=== PATIENT | female | born 1985 | race Hispanic/Latino ===

== ENCOUNTER 2018-07-31 19:45 | Emergency (ER) | payer MEDICAID ==
--- NOTE | 2018-07-31 20:43 | Emergency Department Report ---
Blank Doc - Documentation Documentation: Pt with a hx of migraines states she has had a left sided HOLM since 07/27 pt states she is currently taking fiorcet [place] ibuprofen no emesis felt nausea early no vision changes no numbness or weakness no fever LNMP July 01, had a tubal ligation non smoker occ drinker uses a CBD pen
[2018-07-31 20:44] VITALS: BP 130/82
[2018-07-31] MEDS ORDERED: REGLAN IV ONE (21:13)
[2018-07-31] MEDS ORDERED: TORADOL IV ONE (21:13)
[2018-07-31] MEDS ORDERED: BENADRYL IV ONE (21:14)
--- NOTE | 2018-07-31 21:58 | Emergency Department Report ---
ED Headache HPI - General Chief Complaint: Headache Stated Complaint: MIGRAINE Time Seen by Provider: 07/31/18 20:39 Source: patient Exam Limitations: no limitations - History of Present Illness Initial Comments: Patient is a 33-year-old white female with a history of chronic migraine headaches and usually takes Fioricet at home presents to the ED with acute exacerbation of her chronic migraine headaches diffusely with nausea for the last 4 days. Patient states that she has been taking Fioricet at home with no relief. Patient denies dizziness, change in vision, neck pain, chest pain, shortness of breath, palpitations, vomiting, abdominal pain, diarrhea, fever, chills, nasal and sinus congestion or sore throat. Timing/Duration: constant, waxing and waning, other (4 days) Quality: severe, constant, sharp, throbbing Head Injury Location: global Recent Head Trauma: no recent headache/trauma, chronic headaches Modifying Factors: improves with: medication Associated Symptoms: denies symptoms. denies: confusion, fatigue, facial pain, fever/chills, flushing, loss of consciousness, nausea/vomiting, nasal congestion, nasal drainage, numbness in legs/feet, rash, seizures, sinus infection, stiff neck, weakness Allergies/Adverse Reactions: Allergies No Known Allergies Allergy (Unverified 07/31/18 20:04) Home Medications: Ambulatory Orders Butalb/Acetamin/Caff 50-325-40 [Fioricet 50-325-40] 1 - 2 tab PO Q4H PRN #15 tablet 07/31/18 Ketorolac [Toradol] 10 mg PO Q8H PRN #20 tablet 07/31/18 Promethazine [Phenergan] 25 mg PO Q6HR PRN #24 tab 07/31/18 ED Review of Systems ROS: Stated complaint: MIGRAINE Other details as noted in HPI Comment: All other systems reviewed and negative Constitutional: no symptoms reported, see HPI. denies: chills, diaphoresis, fever Eyes: as per HPI. denies: eye pain, eye discharge, vision change ENT: as per HPI. denies: ear pain, throat pain, dental pain, hearing loss, congestion Respiratory: no symptoms reported, see HPI. denies: cough, shortness of breath, SOB with exertion, SOB at rest, wheezing Cardiovascular: as per HPI. denies: chest pain, palpitations, syncope, paroxysmal nocturnal dyspnea Endocrine: no symptoms reported, see HPI. denies: excessive sweating, flushing, increased thirst, increased urine, unexplained weight gain Gastrointestinal: as per HPI, nausea. denies: abdominal pain, vomiting, diarrhea, hematemesis, hematochezia Genitourinary: as per HPI. denies: urgency, dysuria, frequency, discharge Musculoskeletal: as per HPI, myalgia. denies: back pain, joint swelling, arthralgia Skin: as per HPI. denies: rash, lesions, change in color, change in hair/nails Neurological: as per HPI, headache. denies: weakness, numbness, paresthesias, confusion, abnormal gait, vertigo Psychiatric: as per HPI. denies: anxiety, depression Hematological/Lymphatic: as per HPI. denies: easy bleeding, easy bruising ED Past Medical Hx - Past Medical History Previous Medical History?: No - Surgical History Past Surgical History?: Yes Additional Surgical History: Tubal Ligation - Social History Smoking Status: Never Smoker Substance Use Type: None - Medications Home Medications: Home Medications Medication Instructions Recorded Confirmed Last Taken Type Butalb/Acetamin/Caff 50-325-40 1 - 2 tab PO Q4H PRN #15 tablet 07/31/18 Unknown Rx [Fioricet 50-325-40] Ketorolac [Toradol] 10 mg PO Q8H PRN #20 tablet 07/31/18 Unknown Rx Promethazine [Phenergan] 25 mg PO Q6HR PRN #24 tab 07/31/18 Unknown Rx ED Physical Exam - General Limitations: No Limitations General appearance: alert, in no apparent distress - Head Head exam: Present: atraumatic, normocephalic, normal inspection - Eye Eye exam: Present: normal appearance, PERRL, EOMI. Absent: scleral icterus, conjunctival injection, nystagmus, periorbital swelling, periorbital tenderness Pupils: Present: normal accommodation - ENT ENT exam: Present: normal exam, normal orophraynx, mucous membranes moist, TM's normal bilaterally, normal external ear exam - Neck Neck exam: Present: normal inspection, full ROM. Absent: tenderness, meningismus, lymphadenopathy, thyromegaly - Respiratory Respiratory exam: Present: normal lung sounds bilaterally. Absent: respiratory distress, wheezes, rales, rhonchi, chest wall tenderness, accessory muscle use, decreased breath sounds, prolonged expiratory - Cardiovascular Cardiovascular Exam: Present: regular rate, normal rhythm, normal heart sounds - GI/Abdominal GI/Abdominal exam: Present: soft, normal bowel sounds. Absent: tenderness, guarding, hyperactive bowel sounds, hypoactive bowel sounds, organomegaly - Rectal Rectal exam: Present: deferred - Extremities Exam Extremities exam: Present: normal inspection, full ROM, normal capillary refill - Back Exam Back exam: Present: normal inspection, full ROM. Absent: tenderness, CVA tender ness (L), muscle spasm, paraspinal tenderness, vertebral tenderness - Neurological Exam Neurological exam: Present: alert, oriented X3, CN II-XII intact, normal gait, reflexes normal - Psychiatric Psychiatric exam: Present: normal affect - Skin Skin exam: Present: warm, dry, intact, normal color ED Course Vital Signs 07/31/18 20:41 Temperature 98.2 F Pulse Rate 78 Respiratory 16 Rate Blood Pressure 130/82 [Left] O2 Sat by Pulse 100 Oximetry - Reevaluation(s) Reevaluation #1: 07/31/18 21:57 Patient is alert and oriented 3 and is not in distress, with normal vital sign s. Patient was treated for headache in the ED and on reevaluation, patient's headache significantly improved. Patient was discharged home on more medications for migraine headaches and advised follow-up with her primary care physician in 3-5 days for reevaluation or return to the ED immediately if symptoms get worse. ED Medical Decision Making - Medical Decision Making Patient is alert and oriented 3 and is not in distress, with normal vital signs. Patient was treated for headache in the ED and on reevaluation, patient's headache significantly improved. Patient was discharged home on more medications for migraine headaches and advised follow-up with her primary care physician in 3-5 days for reevaluation or return to the ED immediately if symptoms get worse. - Differential Diagnosis chronic migraine headache Critical care attestation.: If time is entered above; I have spent that time in minutes in the direct care of this critically ill patient, excluding procedure time. ED Disposition Clinical Impression: Migraine headache without aura Qualifiers: Status migrainosus presence: with status migrainosus Intractability: not intractable Qualified Code(s): G43.001 - Migraine without aura, not intractable, with status migrainosus Disposition: DC-01 TO HOME OR SELFCARE Is pt being admited?: No Does the pt Need Aspirin: No Condition: Stable Instructions: Migraine Headache (ED) Additional Instructions: Take medications as advised with food, drink plenty of fluids and follow up with your primary care physician in 3-5 days for reevaluation. Return to the ED immediately if his symptoms get worse. Prescriptions: Butalb/Acetamin/Caff 50-325-40 [Fioricet 50-325-40] 1 - 2 tab PO Q4H PRN #15 tablet PRN Reason: Headache Promethazine [Phenergan] 25 mg PO Q6HR PRN #24 tab PRN Reason: Nausea Ketorolac [Toradol] 10 mg PO Q8H PRN #20 tablet PRN Reason: Pain Referrals: TAD BHAT MD [Primary Care Provider] - 3-5 Days Time of Disposition: 21:59 Print Language: NEPALI
== END 2018-07-31 22:40 | disposition home or self-care (01) ==
LOC: ED 19:45
DX: G43.909 Migraine, unspecified, not intractable, without status migrainosus (principal); Z98.51 Tubal ligation status
CPT/HCPCS: 96374; 96375; 99282; J1200; J1885; J2765